=== PATIENT | female | born 1980 | race African-American/Black ===

== ENCOUNTER 2021-05-17 08:45 | Day surgery (SDC) | payer OTHER ==
[2021-05-13 10:28] LABS: Hematocrit 41.2 % (30.3-42.9); Hemoglobin 13.6 gm/dl (10.1-14.3); Mean Corpuscular HGB Conc 33 % (30-34); Mean Corpuscular Volume 89 fl (79-97); Platelet Count 250 K/mm3 (140-440); Red Blood Count 4.64 M/mm3 (3.65-5.03)
[2021-05-13 10:42] LABS: Alanine Aminotransferase 17 units/L (7-56); Albumin 4.6 g/dL (3.9-5); Blood Urea Nitrogen 15 mg/dL (7-17); Calcium 9.3 mg/dL (8.4-10.2); Hemolysis Index 20
[2021-05-13 10:48] LABS: BUN/Creatinine Ratio 25
[~2021-05-17 08:45] MED LIST: ceFAZolin/Water 2 GM/20 ML 2 GM/20 ML SYRINGE IV NR
[2021-05-17] MEDS ORDERED: LIDOCAINE (1%) 10 MG/1 ML VIAL 20 ML MDV ONE (09:11)
[2021-05-17] MEDS ORDERED: BUPIVACAINE/PF (0.5%) 5 MG/1 ML 30 ML VIAL INFILTRATI ONE ×2 (09:11→11:03)
[2021-05-17] MEDS ORDERED: LACTATED RINGERS 1,000 ML ONE (09:13)
[2021-05-17] MEDS ORDERED: HYDROmorphone 1 MG/1 ML INJ IV PRN ×2 (09:49)
[2021-05-17] MEDS ORDERED: ONDANSETRON 4 MG/2 ML INJ IV PRN (09:49)
[2021-05-17] MEDS ORDERED: MAGNESIUM OXIDE 400 MG TAB PO ONE (09:49)
--- NOTE | 2021-05-17 09:50 | Anesthesia Day of Surgery ---
Anesthesia Day of Surgery - Day of Surgery Patient Examined: Yes Patient H&P Reviewed: Yes Patient is NPO: Yes
--- NOTE | 2021-05-17 09:51 | Anesthesia Consultation ---
Anesthesia Consult and Med Hx Date of service: 05/17/21 - Airway Anesthetic Teeth Evaluation: Good ROM Head & Neck: Adequate Mental/Hyoid Distance: Adequate Mallampati Class: Class III Intubation Access Assessment: Probably Good - Pre-Operative Health Status ASA Pre-Surgery Classification: ASA1 Proposed Anesthetic Plan: General - Pulmonary Hx Smoking: No Hx Sleep Apnea: No (SHERRI PRE SCREEN NEGATIVE) - Cardiovascular System Hx Hypertension: No - Central Nervous System Hx Seizures: No Hx Psychiatric Problems: No - Endocrine Hx Liver Disease: No - Hematic Hx Anemia: No Hx Sickle Cell Disease: No - Other Systems Hx Alcohol Use: No Hx Substance Use: No Hx Cancer: No - Additional Comments Anesthesia Medical History Comments: Friend present to translate
[2021-05-17] MEDS ORDERED: ROCURONIUM 50 MG/5 ML INJ IV ONE (09:52)
[2021-05-17] MEDS ORDERED: LIDOCAINE MPF (2%) 20 MG/1 ML VIAL 5 ML ONE (09:52)
[2021-05-17] MEDS ORDERED: propofoL 200 MG/20 ML VIAL IV ONE (09:53)
[2021-05-17] MEDS ORDERED: CELECOXIB 200 MG CAP PO NR (10:00)
[2021-05-17] MEDS ORDERED: LACTATED RINGERS 1,000 ML IV SCH (10:00)
[2021-05-17] MEDS ORDERED: MIDAZOLAM 2 MG/2 ML INJ IV NR (10:00)
[2021-05-17] MEDS ORDERED: ACETAMINOPHEN 500 MG TAB PO NR (10:30)
[2021-05-17] MEDS ORDERED: SODIUM CHLORIDE 0.9% IRR 1,500 ML BOTTLE IR ONE (11:03)
[2021-05-17] MEDS ORDERED: LIDOCAINE (1%) 10 MG/1 ML VIAL 20 ML MDV INFILTRATI ONE (11:03)
[2021-05-17] MEDS ORDERED: WATER FOR IRRIG STERILE 1,500 ML BOTTLE IR ONE (11:04)
[2021-05-17] MEDS ORDERED: GLYCOPYRROLATE 0.4 MG/2 ML INJ ONE (11:22)
[2021-05-17] MEDS ORDERED: NEOSTIGMINE 10MG/10 ML INJ MDV ONE (11:22)
--- NOTE | 2021-05-17 11:34 | Short Stay Summary ---
Short Stay Documentation Date of service: 05/17/21 - History Principal diagnosis: symptomatic cholelithiasis H&P: obtained from office - Allergies and Medications Current Medications: Allergies No Known Allergies Allergy (Verified 05/12/21 11:57) Home Medications Medication Instructions Recorded Confirmed Last Taken Type Amoxicillin [Trimox CAP] 500 mg PO Q8H 05/11/21 05/11/21 Unknown History Tylenol 650 mg PO PRN 05/11/21 05/11/21 Unknown History Active Medications Acetaminophen (Acetaminophen 500 Mg Tab) 1,000 mg PO ONCE NR Stop: 05/17/21 12:00 Last Admin: 05/17/21 09:59 Dose: 1,000 mg Documented by: Celecoxib (Celecoxib 200 Mg Cap) 400 mg PO PREOP NR Stop: 05/17/21 20:00 Last Admin: 05/17/21 09:59 Dose: 400 mg Documented by: Hydromorphone HCl (Hydromorphone 1 Mg/1 Ml Inj) 0.25 mg IV Q10MIN PRN PRN Reason: Pain, Moderate (4-6) Stop: 05/17/21 23:00 Hydromorphone HCl (Hydromorphone 1 Mg/1 Ml Inj) 0.5 mg IV Q10MIN PRN PRN Reason: Pain , Severe (7-10) Stop: 05/17/21 23:00 Cefazolin Sodium (Ancef/Sterile Water 2 Gm/20 Ml) 2 gm in 20 mls @ 80 mls/hr IV PREOP NR; Protocol Stop: 05/17/21 23:02 Lactated Ringer's (Lactated Ringers) 1,000 mls @ 125 mls/hr IV DIRECT SHERI Last Admin: 05/17/21 09:20 Dose: 125 mls/hr Documented by: Midazolam HCl (Midazolam 2 Mg/2 Ml Inj) 2 mg IV PREOP NR Stop: 05/17/21 23:59 Ondansetron HCl (Ondansetron 4 Mg/2 Ml Inj) 4 mg IV ONCE PRN PRN Reason: Nausea And Vomiting - Brief post op/procedure progress note Date of procedure: 05/17/21 Pre-op diagnosis: symptomatic cholelithiasis Post-op diagnosis: same Procedure: lap isa Anesthesia: GETA, local Findings: gallbladder with adhesions to omentum, gallstones Surgeon: JESUS SARMIENTO [employer] Gr[employer] Machine: ARCHIE MICHEL Estimated blood loss: minimal Pathology: list (gallbladder) Specimen disposition: to lab Condition: stable - Hospital course Hospital course: Pt observed in PACU and discharged to home in stable condition - Disposition Condition at discharge: Good Disposition: 01 HOME / SELF CARE / HOMELESS Short Stay Discharge Plan Activity: no restrictions Diet: regular Wound: open to air, per your surgeon's advice Additional Instructions: see printed instructions Follow up with: NAY FRANCO MD [Primary Care Provider] - 7 Days JESUS SARMIENTO DO [Staff Physician] - 14 Days Prescriptions: HYDROcodone/APAP 5-325 [[place] 5/325] 1 each PO Q6HR PRN #20 tablet PRN Reason: Pain
[2021-05-17] MEDS ORDERED: HYDROcodone/ACETAMINOPHEN 5-325 MG TAB ONE ×2 (12:30→16:06)
[2021-05-17] MEDS ORDERED: HYDROcodone/ACETAMINOPHEN 5-325 MG TAB PO ONE (13:00)
--- NOTE | 2021-05-17 14:33 | Operative Report ---
Operative Report Operative Report: Date of procedure: 05/17/21 Pre-op diagnosis: symptomatic cholelithiasis Post-op diagnosis: same Procedure: lap isa Anesthesia: GETA, local Findings: gallbladder with adhesions to omentum, gallstones Surgeon: JESUS SARMIENTO [employer] Supervisor: ARCHIE MICHEL Estimated blood loss: minimal Pathology: list (gallbladder) Specimen disposition: to lab Condition: stable Hospital course: Pt observed in PACU and discharged to home in stable condition HPI an indication: 41-year-old female who presented to the surgery clinic with complaints of intermittent sharp right upper quadrant abdominal pain. Patient was worked up by her primary care physician with who obtained a right upper quadrant ultrasound. The ultrasound showed a thickened gallbladder wall and a stone at the neck of the gallbladder concerning for acute cholecystitis. The patient was started on antibiotics as an outpatient and improved. CBC and CMP were obtained which were unremarkable. It was recommended that the patient undergo cholecystectomy. All risks, benefits, alternatives to surgery were discussed in detail and questions answered. Consent was obtained for laparoscopic, possible open cholecystectomy, possible cholangiogram. Procedure in detail: The patient was identified in the preoperative area and taken back to the operating room, placed on the operating room table in supine position. After anesthesia was induced, the abdomen was prepped and draped in usual sterile fashion and timeout was performed. Local anesthetic was infiltrated into all of the skin incision sites. A supraumbilical incision was made through which a Veress needle was inserted. The Veress needle position was confirmed using saline drop test and the abdomen insufflated to 15 mmHg without incident. The Veress needle was then removed and a 5 mm Optiview trocar was placed through this incision. The abdomen was inspected and there was no underlying injury to any of the abdominal structures. The patient was placed in reverse Trendelenburg and tilted to the left. An additional 12 mm subxyphoid port, ans 2 5 mm right upper quadrant ports were placed under direct visualization. There were omental adhesions to the gallbladder which were dissected using hook electrocautery. The gallbladder fundus was retracted cephalad and above the liver. The infundibulum was retracted laterally. The cystic duct and artery were carefully skeletonized. The medial and lateral peritoneal attachments to the gallbladder were dissected using a combination of blunt dissection with the [place] and hook electrocautery. The cystic duct and artery were the only 2 structures seen entering the gallbladder and the critical view was successfully obtained. 3 clips were placed on the proximal aspect of the cystic duct and 1 distally and this was transected in between the clips using EndoShears. 2 clips were placed on the proximal aspect of the cystic artery and 1 distally this was transected in between the clips using EndoShears. The gallbladder was dissected from the liver bed using electrocautery. The gallbladder was placed into a Endo Catch bag and removed from the abdomen via the 12mm port. The gallbladder fossa was then inspected and there was no identifiable bleeding or bile leakage. Hemostasis was ensured. The clips on the cystic duct and artery were visualized and intact. The patient was then placed into neutral position. The 12 mm port fascia was closed with interrupted 0 Vicryl suture using the Vamsi Gaxiola device. The remaining ports were removed under direct visualization. Skin incisions were closed with 4-0 Monocryl subcuticular stitches and skin glue. All skin incisions were once again infiltrated with local anesthetic. At the end case all sponge, instrument, sharp counts were correct 2. The patient was awoken from anesthesia, extubated, and taken to PACU in stable condition.
--- NOTE | 2021-05-17 15:51 | Post Anesthesia Evaluation ---
- Post Anesthesia Evaluation Patient Participated: Yes Airway Patent: Yes Stable Respiratory Function: Yes Nausea/Vomiting: No Temp > 96.8F: Yes Pain Manageable: Yes Adequeate Hydration: Yes Anesthesia Complications: No Block Receding Appropriately: Not Applicable Patient on Ventilator: No
[2021-05-17 16:45] VITALS: BP 125/72
== END 2021-05-17 08:46 | disposition home or self-care (01) ==
LOC: OR 08:45 → EDBD 11:15
PROVIDERS: ATTEND Surgery
DX: K80.10 Calculus of gallbladder with chronic cholecystitis without obstruction (principal); Z79.899 Other long term (current) drug therapy; Z98.890 Other specified postprocedural states; Z20.822 Contact with and (suspected) exposure to COVID-19
CPT/HCPCS: 36415; 47562; 80053; 84703; 85027; 88304; J0690; J1170; J1815; J2405; J2704; J2710; J3490; J7120; U0003